=== PATIENT | female | born 1990 | race Caucasian/White ===

== ENCOUNTER 2017-07-15 13:59 | Emergency (ER) | payer MEDICAID ==
[~2017-07-15] VITALS: Ht 162.6 cm; Wt 68.2 kg
[2017-07-15] MEDS ORDERED: PROPARACAINE HCL 0.5% 15 ML OPHTHALMIC SOLUTION OD ONE (17:30)
[2017-07-15 17:43] VITALS: BP 100/70
== END 2017-07-15 17:44 | disposition home or self-care (01) ==
LOC: EMS 14:01
DX: H10.9 Unspecified conjunctivitis (principal)
CPT/HCPCS: 99283

== ENCOUNTER 2018-11-07 12:52 | Emergency (ER) | payer MEDICAID ==
[~2018-11-07] VITALS: Ht 162.6 cm; Wt 77.3 kg
[2018-11-07] MEDS ORDERED: IBUPROFEN 600 MG TABLET PO ONE (14:15)
[2018-11-07] MEDS ORDERED: LIDOCAINE 1%/EPI 1:200,000/PF 10 ML VIAL INJ ONE (14:15)
[2018-11-07] MEDS ORDERED: LIDOCAINE 1%/EPI 1:200,000/PF 30 ML VIAL INJ ONE (14:15)
[2018-11-07] MEDS ORDERED: ACETAMINOPHEN 325 MG TABLET PO ONE (14:15)
[2018-11-07 14:43] VITALS: BP 108/55
== END 2018-11-07 15:18 | disposition home or self-care (01) ==
LOC: EMS 12:52
DX: L02.31 Cutaneous abscess of buttock (principal)
CPT/HCPCS: 10060; 99283; J3490

== ENCOUNTER 2018-11-09 15:56 | Emergency (ER) | payer MEDICAID ==
[~2018-11-09] VITALS: Ht 162.6 cm; Wt 77.3 kg
[2018-11-09 16:29] VITALS: BP 159/85
== END 2018-11-09 18:13 | disposition home or self-care (01) ==
LOC: EMS 15:58
DX: L02.31 Cutaneous abscess of buttock (principal); Z48.00 Encounter for change or removal of nonsurgical wound dressing

== ENCOUNTER 2018-11-28 17:30 | Emergency (ER) | payer MEDICAID ==
[~2018-11-28] VITALS: Ht 160 cm; Wt 77.3 kg
[2018-11-28] MEDS ORDERED: HYDROCODONE/ACETAMINOPHEN 5-325 MG TABLET PO ONE (18:45)
[2018-11-28] MEDS ORDERED: ValACYclovir HCL 500 MG TABLET PO ONE (18:45)
[2018-11-28] MEDS ORDERED: DOXYCYCLINE HYCLATE 100 MG CAPSULE PO ONE (18:45)
[2018-11-28 18:55] LABS: APPEARANCE,URINE CLOUDY (CLEAR); BILIRUBIN,URINE NEGATIVE (NEGATIVE); GLUCOSE, URINE (UA) NEGATIVE (NEGATIVE); KETONES,URINE NEGATIVE (NEGATIVE); LEUKOCYTE ESTERASE ,URINE TRACE (NEGATIVE); NITRATE,URINE NEGATIVE (NEGATIVE); OCCULT BLOOD,URINE NEGATIVE (NEGATIVE); PH,URINE 7.5 (5.0-8.0); PROTEIN,URINE NEGATIVE (NEGATIVE)
[2018-11-28 19:27] LABS: BACTERIA,URINE Rare /HPF (None Seen); RBC,URINE 0-2 /HPF (0-2); SQUAMOUS EPITHELIAL CELL,UR Few /LPF (None Seen)
[2018-11-28 19:40] VITALS: BP 116/69
[2018-11-28] MEDS ORDERED: IBUPROFEN 400 MG TABLET PO ONE (19:45)
== END 2018-11-28 20:05 | disposition home or self-care (01) ==
LOC: EMS 17:31
DX: J02.9 Acute pharyngitis, unspecified (principal); N76.6 Ulceration of vulva; F17.210 Nicotine dependence, cigarettes, uncomplicated
CPT/HCPCS: 99406

== ENCOUNTER 2020-08-31 18:40 | Emergency (ER) | payer MEDICAID, OTHER ==
[~2020-08-31] VITALS: Ht 160 cm; Wt 72.7 kg
[2020-08-31 19:27] VITALS: BP 119/67
== END 2020-08-31 19:50 | disposition home or self-care (01) ==
LOC: EMS 18:40
DX: K64.4 Residual hemorrhoidal skin tags (principal)
CPT/HCPCS: 99281; 99283

== ENCOUNTER 2021-02-13 19:17 | Emergency (ER) | payer MEDICAID ==
[~2021-02-13] VITALS: Ht 160 cm; Wt 81.8 kg
[2021-02-13 20:50] VITALS: BP 127/68
== END 2021-02-13 20:50 | disposition left against medical advice (07) ==
LOC: EMS 19:44
DX: R10.9 Unspecified abdominal pain (principal); F17.210 Nicotine dependence, cigarettes, uncomplicated; Z90.89 Acquired absence of other organs
CPT/HCPCS: 99281; Z7502

== ENCOUNTER 2021-05-04 15:08 | Emergency (ER) | payer MEDICAID ==
[~2021-05-04] VITALS: Ht 160 cm; Wt 81.8 kg
[2021-05-04 16:27] LABS: BASOPHILS % (AUTO) 0.4 % (0.0-2.0); EOSINOPHILS % (AUTO) 1.9 % (1.0-6.0); HEMOGLOBIN 13.2 g/dL (12.0-16.0); LYMPHOCYTES # (AUTO) 1.6 K/uL (1.0-4.8); LYMPHOCYTES % (AUTO) 22.9 % (22.0-44.0); MEAN CORPUSCULAR HEMOGLOBIN 30.3 pg (26.0-34.0); MEAN CORPUSCULAR HGB CONC 33.8 G/dL (31.0-37.0); MEAN CORPUSCULAR VOLUME 90 fL (80-100); MONOCYTES # (AUTO) 0.5 K/uL (0.1-1.0); MONOCYTES % (AUTO) 6.8 % (2.0-9.0); NEUTROPHILS # (AUTO) 4.9 K/uL (1.8-7.7); PLATELET COUNT (AUTO) 342 K/uL (150-450); RED BLOOD CELL COUNT(AUTO) 4.35 MIL/uL (4.00-5.20); RED CELL DISTRIBUTION WIDTH 14.6 % (11.5-14.5)
[2021-05-04 16:38] LABS: ANION GAP 6 mmol/L (8-16); CARBON DIOXIDE 30 mmol/L (22-29); CHLORIDE 105 mmol/L (98-107); CREATININE 0.73 mg/dL (0.60-1.30); GLOMERULAR FILTR. RATE CALC > 60 mL/min (>60); GLUCOSE,RANDOM 107 mg/dL (70-110); POTASSIUM 4.5 mmol/L (3.5-5.1); SODIUM SERUM 141 mmol/L (136-145); UREA NITROGEN, BLOOD 11 mg/dL (7-18)
[2021-05-04 17:03] LABS: CREATINE KINASE, TOTAL ONLY 95 U/L (26-192); HCG,QUANTITATIVE < 1 mIU/mL (0-6)
[2021-05-04 17:40] VITALS: BP 119/68
== END 2021-05-04 17:41 | disposition home or self-care (01) ==
LOC: EMS 15:12
DX: R55 Syncope and collapse (principal); F17.210 Nicotine dependence, cigarettes, uncomplicated
CPT/HCPCS: 80048; 82550; 84702; 85025; 93005; 99284

== ENCOUNTER 2021-11-17 00:51 | Emergency (ER) | payer MEDICAID ==
[~2021-11-17] VITALS: Ht 160 cm; Wt 72.7 kg
[2021-11-17 02:25] VITALS: BP 136/79
== END 2021-11-17 02:50 | disposition left against medical advice (07) ==
LOC: EMS 00:52
DX: Z53.21 Procedure and treatment not carried out due to patient leaving prior to being seen by health care provider (principal)